=== PATIENT | female | born 1980 | race Caucasian/White ===

== ENCOUNTER 2017-12-01 13:44 | Emergency (ER) | payer OTHER | END 2017-12-01 15:50 | disposition home or self-care (01) | LOC: FTE 13:44 | DX: R21 Rash and other nonspecific skin eruption (principal) | CPT/HCPCS: 99283; Z7502 ==

== ENCOUNTER 2017-12-10 14:45 | Emergency (ER) | payer OTHER | END 2017-12-10 16:20 | disposition home or self-care (01) | LOC: E/R 14:45 | DX: R21 Rash and other nonspecific skin eruption (principal) | CPT/HCPCS: 99283; Z7502 ==